=== PATIENT | male | born 1945 | race Caucasian/White ===

== ENCOUNTER → 2021-03-03 | Day surgery (SDC) | payer MEDICARE ==
[~2021-03-03] VITALS: Ht 162.6 cm; Wt 67.9 kg
[~2021-03-03] MED LIST: CLARITIN 1010 MG/TAB PO; COENZYME Q-10200 M1 PO; DIPROLENE OI 15GM TP; EPA FISH OIL1 SGL PO; FLOMAX 0.40.4 MG/CAP PO; MASON NATURAL2000 IU PO; MICROZIDE12.5 MG PO; NASACORT OTC NS; NORCO 325 MG-51 TAB PO; TAPAZOLE5 MG PO; TRIAMCINOLONE A15 G3 TP; VITAMIN B125000 MCG PO
[2021-03-03 11:36] VITALS: BP 137/79; PULSE 83; TEMP 98
[2021-03-03 15:00] VITALS: BP 144/74; PULSE 65; TEMP 97.7
--- NOTE | 2021-03-03 15:00 | NUR ---
Patient arrived back into [facility]. Report recieved from PACU. Report received from RIMA Mcfarlane. Daughter and at bedside. Patient requesting pepsi and laurie brennanin.
[2021-03-03 15:15] VITALS: BP 145/74; PULSE 65
--- NOTE | 2021-03-03 15:15 | NUR ---
Patient reports doing well. Tolerated food and drink well. No complaint of nausea and states pain is "tolerable".
--- NOTE | 2021-03-03 15:25 | NUR ---
Went through discharge instructions with patient, , and granddaughter. Questions answered. Verbalized understanding to education. Patient states he would like to try and use the restroom and get dressed.
[2021-03-03 15:30] VITALS: BP 146/64; PULSE 72
--- NOTE | 2021-03-03 15:45 | NUR ---
Escorted patient to patient entrance via wheelchair. Patient's and granddaughter along side. Patient got into personal vehicle unassisted and left in the care of his granddaughter.
== END ==
LOC: SDCO 10:17
DX: K40.90 Unilateral inguinal hernia, without obstruction or gangrene, not specified as recurrent (principal); I10 Essential (primary) hypertension; E78.5 Hyperlipidemia, unspecified; N40.0 Benign prostatic hyperplasia without lower urinary tract symptoms; E05.00 Thyrotoxicosis with diffuse goiter without thyrotoxic crisis or storm; F17.210 Nicotine dependence, cigarettes, uncomplicated; Z79.899 Other long term (current) drug therapy; Z85.828 Personal history of other malignant neoplasm of skin
CPT/HCPCS: C1781; J0690; J2405; J2704; J3010; J7120